=== PATIENT | female | born 1935 | race African-American/Black ===

== ENCOUNTER 2023-10-28 12:56 | Emergency (ER) | payer OTHER ==
[~2023-10-28] VITALS: Ht 160 cm; Wt 63.6 kg
[~2023-10-28 12:56] MED LIST: ASPI-1444 PO; ATOR20TA65 PO; BUSP10TA23; CITA-107; CLOP75TA60 PO; HYDR50TA37 PO; LOSA-382 PO; METF-1211 PO; OMEP20TA20; VERA120T92 PO
[2023-10-28 13:01] VITALS: TEMP 98
[2023-10-28] MEDS ORDERED: OMEP20CA12 PO (13:03)
[2023-10-28] MEDS ORDERED: VERA120T91 PO (13:03)
[2023-10-28] MEDS ORDERED: POTA-92 PO (13:03)
[2023-10-28] MEDS ORDERED: CLOP75TA32 PO (13:03)
[2023-10-28] MEDS ORDERED: METO50 PO (13:03)
[2023-10-28] MEDS ORDERED: ATOR10TA69 PO (13:03)
[2023-10-28 15:34] VITALS: BP 173/66; PULSE 63; RESP 18
== END 2023-10-28 15:49 | disposition home or self-care (01) ==
LOC: EMS 14:15
DX: S09.90XA Unspecified injury of head, initial encounter (principal); E11.9 Type 2 diabetes mellitus without complications; E78.00 Pure hypercholesterolemia, unspecified; I11.9 Hypertensive heart disease without heart failure; Z90.710 Acquired absence of both cervix and uterus; Z98.890 Other specified postprocedural states; W19.XXXA Unspecified fall, initial encounter; Y93.89 Activity, other specified; Y92.89 Other specified places as the place of occurrence of the external cause; Y99.8 Other external cause status
CPT/HCPCS: 70450; 72125; 82962; 99284